=== PATIENT | male | born 1965 | race Caucasian/White ===

== ENCOUNTER 2023-10-01 11:19 | Inpatient (IN) ==
[2023-10-01] MEDS ORDERED: IOPAMIDOL 100 ML BOTTLE IV ONE (11:20)
[2023-10-01] MEDS: POTASSIUM CHLORIDE 20 MEQ TABLET PO ONE (12:17)
[2023-10-01] MEDS: POTASSIUM CHLORIDE 20 MEQ in DEXTROSE 5% IN WATER 250 ML IV ONE (12:17)
[2023-10-01] MEDS: 0.9 % SODIUM CHLORIDE 1,000 ML IV ONE (12:18)
[2023-10-01 12:28] LABS: Basophils # (Auto) 0.02 K/mcL (0.00-0.30); Basophils % (Auto) 0.2 % (0.0-2.0); Eosinophils # (Auto) 0.08 K/mcL (0.00-0.70); Eosinophils % (Auto) 0.6 % (0.0-7.0); Hematocrit 43.2 % (40.1-51.0); Hemoglobin 14.3 g/dL (13.7-17.5); Lymphocytes # (Auto) 1.36 K/mcL (1.50-4.80); Lymphocytes % (Auto) 10.7 % (15.5-49.0); Mean Cell Volume 96.2 fL (80.0-100.0); Mean Corpuscular HGB Conc 33.1 g/dL (31.0-36.0); Mean Platelet Volume 10.2 fL (8.8-12.5); Monocytes # (Auto) 0.98 K/mcL (0.10-0.90); Monocytes % (Auto) 7.7 % (1.0-12.0); Neutrophils % (Auto) 80.6 % (38.0-78.0); Platelet Count 259 K/mcL (140-440); RBC 4.49 M/mcL (4.63-6.08); Red Cell Distribution Width 12.7 % (11.5-14.5); WBC 12.7 K/mcL (4.5-11.0)
[2023-10-01] MEDS: MAGNESIUM SULFATE 2 GM/50 ML BAG IV ONE (13:21)
[2023-10-01 13:24] LABS: ALT/SGPT 17 U/L (<40); AST/SGOT 26 U/L (<40); Albumin 3.7 gm/dL (3.2-5.2); Albumin/Globulin Ratio 1.2 (1.0-2.3); Alkaline Phosphatase 61 U/L (39-117); Bilirubin,Total 0.4 mg/dL (0.1-1.0); Blood Urea Nitrogen 26 mg/dL (6-20); Calcium 9.2 mg/dL (8.6-10.4); Carbon Dioxide 27 mmol/L (22-30); Chloride 98 mmol/L (96-108); Globulin 3.2 gm/dL (2.2-3.7); Glomerular Filtration Rate 74; Glucose 105 mg/dL (70-105)
[2023-10-01 13:32] LABS: Appearance,Urine Clear (Clear); Bacteria,Urine 0 /hpf (0); Bilirubin,Urine Negative (Negative); Color,Urine Yellow; Culture Indicated,Urine No; Glucose,Urine (UA) Negative (Negative); Ketones,Urine 15 mg/dL (Negative); Leukocyte Esterase,Urine Negative /uL (Negative); Nitrate,Urine Negative (Negative); PH,Urine 5.5 (5.0-9.0); Protein,Urine 100 mg/dL (Negative); Urine Blood Small ery/mcL (Negative); Urine Hyaline Cast 2 /lph (0-2); Urine RBC 0 /hpf (0-3); Urine Squamous Epithelial Cell 0 /hpf (0-4); Urine WBC 0 /hpf (0-4); Urobilinogen,Urine Normal
[2023-10-01] MEDS ORDERED: PROMETHAZINE 25 MG/ML VIAL IV PRN (15:22)
[2023-10-01] MEDS ORDERED: morphine 4 MG/ML VIAL IV PRN (15:22)
[2023-10-01] MEDS ORDERED: ONDANSETRON 4 MG/2 ML VIAL IV PRN (15:22)
[2023-10-01] MEDS: PIPERACILLIN SODIUM/TAZOBACTAM 3.375 GM in DEXTROSE 5% IN WATER 50 ML IV ONE (16:00)
[2023-10-01] MEDS: PIPERACILLIN SODIUM/TAZOBACTAM 3.375 GM in DEXTROSE 5% IN WATER 100 ML IV SCH ×2 (17:29→20:31)
[2023-10-01] MEDS: PANTOPRAZOLE 40 MG VIAL IV SCH (18:10)
[2023-10-01] MEDS: ACETAMINOPHEN 1,000 MG/100 ML BAG IV SCH (18:11)
[2023-10-01] MEDS: 0.9 % SODIUM CHLORIDE 1,000 ML IV SCH (18:12)
[2023-10-01] MEDS: amLODIPine 10 MG TABLET PO ONE (18:48)
[2023-10-01] MEDS: LISINOPRIL 10 MG TABLET PO ONE (18:48)
[2023-10-01] MEDS: LISINOPRIL 10 MG TABLET PO SCH (20:30)
[2023-10-01] MEDS: NICOTINE 7 MG PATCH TOPICAL SCH (20:31)
[2023-10-02 06:27] LABS: Basophils # (Auto) 0.02 K/mcL (0.00-0.30); Basophils % (Auto) 0.1 % (0.0-2.0); Eosinophils # (Auto) 0.08 K/mcL (0.00-0.70); Eosinophils % (Auto) 0.6 % (0.0-7.0); Hematocrit 42.2 % (40.1-51.0); Lymphocytes # (Auto) 1.01 K/mcL (1.50-4.80); Mean Cell Volume 96.6 fL (80.0-100.0); Mean Corpuscular HGB Conc 33.2 g/dL (31.0-36.0); Mean Platelet Volume 10.3 fL (8.8-12.5); Monocytes # (Auto) 1.16 K/mcL (0.10-0.90); Monocytes % (Auto) 8.1 % (1.0-12.0); Platelet Count 265 K/mcL (140-440); RBC 4.37 M/mcL (4.63-6.08); Red Cell Distribution Width 12.7 % (11.5-14.5); WBC 14.4 K/mcL (4.5-11.0)
[2023-10-02 07:06] LABS: ALT/SGPT 14 U/L (<40); AST/SGOT 23 U/L (<40); Albumin 3.5 gm/dL (3.2-5.2); Albumin/Globulin Ratio 1.2 (1.0-2.3); Alkaline Phosphatase 58 U/L (39-117); Bilirubin,Direct 0.2 mg/dL (<0.3); Bilirubin,Total 0.5 mg/dL (0.1-1.0); Blood Urea Nitrogen 16 mg/dL (6-20); Calcium 8.7 mg/dL (8.6-10.4); Carbon Dioxide 25 mmol/L (22-30); Chloride 101 mmol/L (96-108); Glomerular Filtration Rate 83; Glucose 121 mg/dL (70-105); Lactate Dehydrogenase 175 U/L (135-225); Phosphorous 2.7 mg/dL (2.5-4.5); Triglycerides 105 mg/dL (<150); Uric Acid 4.9 mg/dL (2.5-8.0)
[2023-10-02] MEDS: POTASSIUM CHLORIDE 40 MEQ in DEXTROSE 5% IN WATER 500 ML IV SCH (08:54)
[2023-10-02] MEDS: amLODIPine 10 MG TABLET PO SCH (08:54)
[2023-10-02] MEDS: SIMETHICONE 80 MG TAB.CHEW CHEWED SCH (14:37)
[2023-10-02] MEDS: METOCLOPRAMIDE 10 MG/2 ML VIAL IV SCH (17:06)
[2023-10-02] MEDS: POTASSIUM CHLORIDE 40 MEQ in DEXTROSE 5% IN WATER 250 ML IV ONE (18:22)
[2023-10-03 06:57] LABS: Basophils # (Auto) 0.03 K/mcL (0.00-0.30); Basophils % (Auto) 0.3 % (0.0-2.0); Eosinophils % (Auto) 0.9 % (0.0-7.0); Hemoglobin 14.1 g/dL (13.7-17.5); Lymphocytes # (Auto) 0.94 K/mcL (1.50-4.80); Mean Cell Volume 97.1 fL (80.0-100.0); Mean Corpuscular HGB Conc 32.8 g/dL (31.0-36.0); Mean Platelet Volume 10.3 fL (8.8-12.5); Monocytes # (Auto) 0.54 K/mcL (0.10-0.90); Monocytes % (Auto) 4.6 % (1.0-12.0); Platelet Count 265 K/mcL (140-440); RBC 4.43 M/mcL (4.63-6.08); Red Cell Distribution Width 12.5 % (11.5-14.5); WBC 11.7 K/mcL (4.5-11.0)
[2023-10-03 07:36] LABS: ALT/SGPT 7 U/L (<40); AST/SGOT 16 U/L (<40); Albumin 3.3 gm/dL (3.2-5.2); Albumin/Globulin Ratio 1.1 (1.0-2.3); Alkaline Phosphatase 58 U/L (39-117); Bilirubin,Direct < 0.2 mg/dL (0-0.3); Bilirubin,Total 0.3 mg/dL (0.1-1.0); Blood Urea Nitrogen 10 mg/dL (6-20); Calcium 8.5 mg/dL (8.6-10.4); Carbon Dioxide 24 mmol/L (22-30); Chloride 101 mmol/L (96-108); Globulin 2.9 gm/dL (2.2-3.7); Glomerular Filtration Rate 99; Glucose 98 mg/dL (70-105); Lactate Dehydrogenase 157 U/L (135-225); Phosphorous 2.6 mg/dL (2.5-4.5); Triglycerides 108 mg/dL (<150)
[2023-10-03] MEDS: POTASSIUM CHLORIDE 40 MEQ in DEXTROSE 5% IN WATER 500 ML IV SCH ×2 (08:36→13:29)
[2023-10-03] MEDS: LISINOPRIL 10 MG TABLET PO ONE (23:43)
[2023-10-04] MEDS: LISINOPRIL 10 MG TABLET ONE (00:05)
[2023-10-04] MEDS: hydrALAZINE 20 MG/ML VIAL ONE (04:06)
[2023-10-04] MEDS: hydrALAZINE 20 MG/ML VIAL IV PRN (04:06)
[2023-10-04] MEDS: fentaNYL 100 MCG/2 ML VIAL IV PRN (06:09)
[2023-10-04 07:39] LABS: Basophils # (Auto) 0.04 K/mcL (0.00-0.30); Basophils % (Auto) 0.4 % (0.0-2.0); Eosinophils # (Auto) 0.11 K/mcL (0.00-0.70); Hematocrit 40.3 % (40.1-51.0); Hemoglobin 13.6 g/dL (13.7-17.5); Lymphocytes # (Auto) 1.71 K/mcL (1.50-4.80); Lymphocytes % (Auto) 15.4 % (15.5-49.0); Mean Cell Volume 95.3 fL (80.0-100.0); Mean Corpuscular HGB Conc 33.7 g/dL (31.0-36.0); Mean Platelet Volume 10.3 fL (8.8-12.5); Monocytes # (Auto) 0.74 K/mcL (0.10-0.90); Monocytes % (Auto) 6.6 % (1.0-12.0); Neutrophils % (Auto) 76.3 % (38.0-78.0); Platelet Count 313 K/mcL (140-440); RBC 4.23 M/mcL (4.63-6.08); Red Cell Distribution Width 12.6 % (11.5-14.5); WBC 11.1 K/mcL (4.5-11.0)
[2023-10-04] MEDS: LISINOPRIL 20 MG TABLET PO SCH (08:02)
[2023-10-04 08:07] LABS: ALT/SGPT 7 U/L (<40); AST/SGOT 18 U/L (<40); Albumin 3.3 gm/dL (3.2-5.2); Albumin/Globulin Ratio 1.1 (1.0-2.3); Alkaline Phosphatase 65 U/L (39-117); Bilirubin,Direct < 0.2 mg/dL (0-0.3); Bilirubin,Total 0.3 mg/dL (0.1-1.0); Blood Urea Nitrogen 9 mg/dL (6-20); Calcium 8.6 mg/dL (8.6-10.4); Carbon Dioxide 24 mmol/L (22-30); Chloride 100 mmol/L (96-108); Globulin 2.9 gm/dL (2.2-3.7); Glomerular Filtration Rate 94; Glucose 97 mg/dL (70-105); Lactate Dehydrogenase 173 U/L (135-225); Phosphorous 2.8 mg/dL (2.5-4.5); Triglycerides 123 mg/dL (<150); Uric Acid 2.8 mg/dL (2.5-8.0)
[2023-10-04] MEDS: POTASSIUM CHLORIDE 40 MEQ in DEXTROSE 5% IN WATER 500 ML IV ONE ×2 (10:14→15:08)
[2023-10-05 06:21] LABS: Basophils # (Auto) 0.06 K/mcL (0.00-0.30); Basophils % (Auto) 0.7 % (0.0-2.0); Eosinophils % (Auto) 2.5 % (0.0-7.0); Hematocrit 41.8 % (40.1-51.0); Hemoglobin 13.8 g/dL (13.7-17.5); Lymphocytes # (Auto) 1.63 K/mcL (1.50-4.80); Mean Cell Volume 96.3 fL (80.0-100.0); Mean Platelet Volume 9.6 fL (8.8-12.5); Monocytes # (Auto) 0.63 K/mcL (0.10-0.90); Monocytes % (Auto) 7.7 % (1.0-12.0); Neutrophils % (Auto) 68.7 % (38.0-78.0); Platelet Count 348 K/mcL (140-440); RBC 4.34 M/mcL (4.63-6.08); Red Cell Distribution Width 12.7 % (11.5-14.5); WBC 8.1 K/mcL (4.5-11.0)
[2023-10-05 07:33] LABS: ALT/SGPT 16 U/L (<40); AST/SGOT 32 U/L (<40); Albumin 3.3 gm/dL (3.2-5.2); Albumin/Globulin Ratio 1.1 (1.0-2.3); Alkaline Phosphatase 57 U/L (39-117); Bilirubin,Direct < 0.2 mg/dL (0-0.3); Bilirubin,Total 0.3 mg/dL (0.1-1.0); Blood Urea Nitrogen 7 mg/dL (6-20); Calcium 8.6 mg/dL (8.6-10.4); Carbon Dioxide 22 mmol/L (22-30); Chloride 102 mmol/L (96-108); Globulin 2.9 gm/dL (2.2-3.7); Glomerular Filtration Rate 99; Glucose 98 mg/dL (70-105); Lactate Dehydrogenase 156 U/L (135-225); Phosphorous 2.7 mg/dL (2.5-4.5); Triglycerides 149 mg/dL (<150); Uric Acid 2.7 mg/dL (2.5-8.0)
[2023-10-05] MEDS: POTASSIUM CHLORIDE 20 MEQ TABLET PO SCH (08:26)
[2023-10-05] MEDS ORDERED: IOPAMIDOL 100 ML BOTTLE IV ONE (08:47)
[2023-10-05] MEDS: NICOTINE 14 MG PATCH TOPICAL SCH (17:01)
[2023-10-05] MEDS: ALPRAZolam 0.5 MG TABLET PO PRN (17:09)
[2023-10-06 06:47] LABS: ALT/SGPT 20 U/L (<40); AST/SGOT 30 U/L (<40); Albumin 3.3 gm/dL (3.2-5.2); Albumin/Globulin Ratio 1.2 (1.0-2.3); Alkaline Phosphatase 57 U/L (39-117); Bilirubin,Direct < 0.2 mg/dL (0-0.3); Bilirubin,Total 0.3 mg/dL (0.1-1.0); Blood Urea Nitrogen 6 mg/dL (6-20); Calcium 8.6 mg/dL (8.6-10.4); Carbon Dioxide 23 mmol/L (22-30); Chloride 104 mmol/L (96-108); Globulin 2.8 gm/dL (2.2-3.7); Glomerular Filtration Rate 99; Glucose 98 mg/dL (70-105); Lactate Dehydrogenase 157 U/L (135-225); Phosphorous 2.6 mg/dL (2.5-4.5); Triglycerides 147 mg/dL (<150); Uric Acid 2.7 mg/dL (2.5-8.0)
== END 2023-10-07 17:00 | disposition home or self-care (01) | DRG 392 ==
LOC: ED 11:19 → MEDSUR 17:07
PROVIDERS: ADMIT Family Medicine Adult Medicine; ATTEND Family Medicine Adult Medicine